=== PATIENT | male | born 1995 | race African-American/Black ===

== ENCOUNTER 2019-08-02 08:32 | Emergency (ER) | payer SELFPAY ==
[~2019-08-02] VITALS: Ht 170.2 cm; Wt 72.0 kg
[2019-08-02 10:17] VITALS: BP 111/67
== END 2019-08-02 10:19 | disposition home or self-care (01) ==
LOC: ED 10:00
DX: J06.9 Acute upper respiratory infection, unspecified (principal)
CPT/HCPCS: 71046; 87081; 87880; 99284

== ENCOUNTER 2020-04-11 10:53 | Emergency (ER) | payer MEDICAID ==
[~2020-04-11] VITALS: Ht 170.2 cm; Wt 71.5 kg
[2020-04-11 11:12] VITALS: BP 109/66
== END 2020-04-11 11:43 | disposition home or self-care (01) ==
LOC: ED 11:27
DX: M79.10 Myalgia, unspecified site (principal); Z20.828 Contact with and (suspected) exposure to other viral communicable diseases; R05 Cough; R43.8 Other disturbances of smell and taste
CPT/HCPCS: 87635; 99283